=== PATIENT | female | born 1945 | race Caucasian/White ===

== ENCOUNTER 2017-07-15 05:17 | Inpatient (IN) ==
--- NOTE | 2017-07-11 15:54 | Orthopedic History & Physical ---
Orthopedic HPI - HPI Comments Nichelle is a 72 yo female who reports left knee pain for many months. Her pain is moderate, aching and intermittent. Symptoms are worsening gradually and the knee is becoming more valgus in position. No injury or previous surgery. Associated symptoms include : swelling and night pain. Aggravating factors: wt bearing, stairs, walking. Treatments tried : Exercises and rest. Xrays show advanced OA with bone on bone appearance of the lateral joint compartment. PFS Patient Stated Medical History Sleep Apnea No Anesthesia Reactions no known blood relation problems with anesthesia Post Menopausal Yes Clinic Medical History (Last Reviewed 06/05/17 @ 08:54 by El Stearns MD) No pertinent past medical history (Acute Medical) Surgical History: none Family History: Family History (Last Reviewed 06/05/17 @ 08:54 by El Stearns MD) Mother Colon polyps HTN (hypertension) Father Stroke CHF (congestive heart failure) Brother Diabetes - Social History Smoking status: Never smoker Review of Systems All systems: reviewed and no additional remarkable complaints except as stated ( Unchanged from Dr Stearns's dictation.) Medications Home Medications Medication Instructions Recorded Confirmed Type coenzyme Q10 30 mg capsule 30 mg PO DAILY cap 04/23/17 07/11/17 History [id number]-[id number] oil-D3 667 1 cap PO BID cap 04/23/17 07/11/17 History mg (280 mg-280 mg-107 mg) capsule wheat germ oil 14 minim capsule 1 cap PO BID cap 04/23/17 07/11/17 History Allergies Allergy/AdvReac Type Severity Reaction Status Date / Time No Known Allergies Allergy Verified 04/23/17 11:07 Orthopedic Exam - Constitutional General Appearance: Present: alert, orientated x3, cooperative, no acute distress - Respiratory Exam Present: non-labored - Cardiovascular Exam Present: pedal pulses intact - Extremities Exam Present: pulses intact. Absent: cyanosis, clubbing, calf tenderness - Knee Exam left Knee Exam: Present: tender along joint line (Lateral joint line.), Valgus deformity (15 degree valgus deformity.), ROM (5-110 degrees ROM. ), stable to ligament exam - Integumentary Exam Present: pink, warm, dry - Neurological Exam Present: intact to light touch, no deficits - Psychiatric Exam Present: alert, normal affect Orthopedic Assessment and Plan (1) Primary osteoarthritis of left knee Status: Acute Assessment and Plan: The patient has exhausted most conservative forms of treatment and continues to have pain that is debilitating in nature. I do not feel that additional conservative or non-surgical methods are likely to reduce pain or improve function. Due to the lack of response to conservative treatment this patient is being admitted for an elective Total Joint Replacement. We have reviewed operative, non-operative, and alternative forms of treatment. The risk of infection, nerve and vascular injury, fracture, implant loosening and failure have all been explained to the patient. The possibility of persistent pain, stiffness, weakness, and other mechanical problems after surgery have been discussed with this patient. Occasionally, the joint may feel un-natural or unstable and may require removal or additional surgery. The patient has expressed their understandings of these risk and has agreed to proceed with elective joint replacement. The patients length of stay is NOT expected to exceed 2 midnights and outpatient admission is expected. Hospital Course Summary Disclaimer: The visit summary below is not to be considered part of the above Progress Note.
[2017-07-15 05:37] VITALS: BMI 31.2
[2017-07-15] MEDS ORDERED: ACETAMINOPHEN 500 MG TABLET PO ONE (06:00)
[2017-07-15] MEDS ORDERED: MELOXICAM 15 MG TABLET PO ONE (06:00)
[2017-07-15] MEDS ORDERED: LIDOCAINE 1% (10mg/ml) 2mL INJ PF SDV ID ONE (06:00)
[2017-07-15] MEDS ORDERED: METOCLOPRAMIDE 10mg/2ml INJECTION IVP ONE (06:00)
[2017-07-15] MEDS ORDERED: FAMOTIDINE PB 20 MG/50 ML BAG IV ONE (06:00)
[2017-07-15] MEDS ORDERED: TRANEXAMIC ACID 1,000 MG in NS 100 ML IV ONE ×2 (06:00→07:00)
[2017-07-15] MEDS ORDERED: ONDANSETRON 4 MG/2 ML INJECTION IVP ONE (06:00)
[2017-07-15] MEDS ORDERED: DEXAMETHASONE 4 MG/ML INJECTION IVP ONE (06:00)
[2017-07-15] MEDS: LR 1,000 ML IV SCH ×3 (06:08→08:10)
[2017-07-15] MEDS: NOZIN NASAL SWAB NAS SCH ×6 (06:17→22:04)
[2017-07-15] MEDS ORDERED: VANCOMYCIN 1,000 MG INJECTION ONE (06:28)
--- NOTE | 2017-07-15 06:46 | Anesthesia Preoperative Report ---
Anesthesia Preoperative Record - Date and Time Date: 07/15/17 Preoperative Diagnosis: Lt TKA M17.12 primary arthritis Proposed Procedure: left knee arthroplasty NPO Since Date: 07/14/17 NPO Since Time: 23:00 Allergies/Adverse Reactions: Allergies Allergy/AdvReac Type Severity Reaction Status Date / Time No Known Allergies Allergy Verified 07/15/17 05:54 - Vital Signs Vital Signs: Temperature 97.9 F 07/15/17 05:36 Pulse Rate 54 L 07/15/17 06:03 Respiratory Rate 13 07/15/17 05:36 Blood Pressure 136/75 07/15/17 05:36 Pulse Oximetry 94 07/15/17 05:36 Height and Weight: Height 1.7 m Weight 90.5 kg Body Mass Index 31.2 - Medications Inpatient Medications: Current Medications Cefazolin Sodium (Kefzol) 2 g IVP PREOP ONE Stop: 07/15/17 07:01 Epinephrine HCl 0.25 mg/Bupivacaine HCl 30 ml/Morphine Sulfate 15 mg/Ketorolac Tromethamine 60 mg/Sodium Chloride 65.25 mls @ 0 mls/hr OPSITE INTRAOP ONE; Per Protocol PRN Reason: Protocol Stop: 07/15/17 08:01 Tranexamic Acid 1,000 mg/ (Sodium Chloride) 110 mls @ 660 mls/hr IV INTRAOP ONE Stop: 07/15/17 07:09 Lactated Ringer's (Lactated Ringers) 1,000 mls @ 50 mls/hr IV .Q20H [facility] Last Admin: 07/15/17 06:08 Dose: 50 mls/hr Isopropyl Alcohol (Nozin Nasal Swab) 1 each LISA Q1M [facility] Stop: 07/15/17 15:33 Last Admin: 07/15/17 06:20 Dose: 1 each Sodium Chloride (Iv Flush) 10 - 80 ml IV PRN PRN PRN Reason: [place] Home Medications: Home Medications Medication Instructions Recorded Confirmed Type coenzyme Q10 30 mg capsule 30 mg PO DAILY cap 04/23/17 07/15/17 History [id number]-epa-fish oil-D3 667 1 cap PO BID cap 04/23/17 07/15/17 History mg (280 mg-280 mg-107 mg) capsule wheat germ oil 14 minim capsule 1 cap PO BID cap 04/23/17 07/15/17 History - Medical History Respiratory: DENIES: Sleep Apnea Neuro/Musculoskeletal: Reports: HX.MS.OSAR (KNEES, HANDS) Other History: Comment Only: Anesthesia Reactions (no known blood relation problems with anesthesia) - Surgical History GI Surgery/Treatments: Reports: Colonoscopy Anesthesia Reactions: None Hx Family Anesthesia Reaction: No - Social History Smoking Status: Never smoker Substance Use Type: does not use Alcohol Intake: current Alcohol Intake Frequency: holidays/special occasions only - Pertinent Findings EKG: Sinus Bradycardia - Physical Exam Respiratory Exam: Present: lungs clear, bilateral breath sounds equal Cardiovascular Exam: Present: regular rate and rhythm, no murmur - Airway Assessment Mallampati Score: II TMD: 3 Fingerbreadths Neck Extension: fair Overall Assessment: may be difficult mask vent - ASA ASA Score: 1 - Plan Anesthesia: General Inhalation Gases Regional/Trunk Block: Spinal Peripheral Nerve Block: Saphenous-Left - Discussion Discussion: Discussed risks/options/alternatives of anesthesia and questions answered. Patient consents. Nursing pain assessment noted. Attestation Statement: Prior to the delivery of any anesthetic medication, I examined the patient, developed the plan, obtained the patient's consent and discussed the risk and benefits of the procedure with the patient/guardian. - Additional Information Seen by Anesthesia: Yes
[2017-07-15] MEDS ORDERED: MIDAZOLAM 2mg/2ml INJECTION ONE (06:55)
[2017-07-15] MEDS ORDERED: KETAMINE 500 MG/10 ML INJECTION ONE (06:55)
[2017-07-15] MEDS ORDERED: FentaNYL 100 MCG/2 ML INJECTION ONE (06:55)
[2017-07-15] MEDS ORDERED: PROPOFOL 20 ML ONE (06:57)
[2017-07-15] MEDS ORDERED: CEFAZOLIN 1 G INJECTION IVP ONE (07:00)
[2017-07-15] MEDS ORDERED: VANCOMYCIN 1,000 MG INJECTION IAR ONE (07:40)
[2017-07-15] MEDS ORDERED: EPINEPHrine PF 0.25 MG, BUPIVACAINE 0.25% PF 30 ML, MORPHINE SULFATE 15 MG, KETOROLAC I... OPSITE ONE (08:00)
[2017-07-15] MEDS ORDERED: FentaNYL 100 MCG/2 ML INJECTION IVP PRN (08:07)
[2017-07-15] MEDS ORDERED: ROPIVACAINE 0.5% (5mg/ml) 30ml INJ ONE (08:12)
--- NOTE | 2017-07-15 08:30 | Operative Note ---
- Procedure Preoperative Diagnosis: Left knee primary degenerative joint disease Postoperative Diagnosis: Same as preoperative diagnosis. Surgeon: Tala Stearns MD Hydropress Operator: Cameron Valdez Complications: None. Anesthesia: Spinal. Estimated Blood Loss: See Anesthesia Record. Fluids: Please see Anesthesia Record. Description of Procedure: Mrs. Addison and her left knee were identified and marked in the preoperative holding area. She was brought back to the operating suite. Spinal anesthetic was administered and she was placed supine on the operating table. The left lower extremity was prepped and draped in my normal sterile fashion. Timeout was performed. The [employer] robotic arm was used during the surgery. She had a partially correctable valgus deformity with a proximally a 10 flexion contracture. A standard anterior midline incision followed by medial parapatellar arthrotomy was performed. Anterior fat pad and meniscus were removed. The patella was everted and a patella osteotomy was performed leaving 13 mm of bone. Tibial and femoral arrays and checkpoints were placed both within the original incision. The bone was then registered with the [employer] robot. Osteophytes were removed and gaps were captured both 90 and 0 degrees with correction. The [employer] robotic software was used to manipulate components to obtain 18 mm gaps throughout. The [employer] robotic arm was then used to assist with the bone cuts. Posterior osteophytes and remaining meniscus were removed. Trial components were placed. We used a 4 femur and a 4 tibia with a 9 mm spacer and a 32 mm patella. She was well balanced throughout range of motion. She had slight tilt of the patella which was corrected using a towel clip to reapproximate the capsulotomy. The leg was exsanguinated and the tourniquet inflated to 250 mmHg. The tibia was stamped. The bone was prepared for cementing and components were cemented into place and allowed to cure in extension. The tourniquet was let down and hemostasis obtained with electrocautery. The knee was ranged one more time to ensure good stability, balance and patellar tracking. 1 g of vancomycin powder was then placed into the knee joint. The capsulotomy was then closed with #1 Vicryl. I then left my [employer] assistant principal to close the subcutaneous tissue with 2-0 Vicryl. Running 4-0 Monocryl will be used in the subcuticular layer. Dermabond will be used on the skin followed by sterile dressing. After drapes are removed patient will be taken to recovery room under the care of anesthesia.
[2017-07-15] MEDS ORDERED: SEVOFLURANE 250ml LIQUID IH ONE (08:42)
--- NOTE | 2017-07-15 09:29 | Anesthesia Postoperative Note ---
- Date and Time Date: 07/15/17 Time: 09:04 - Status Patient Participated in Evaluation: Patient Participated in Person Vital Signs: Temperature 97.3 F 07/15/17 09:12 Pulse Rate 56 L 07/15/17 09:25 Respiratory Rate 12 07/15/17 09:25 Blood Pressure 105/61 07/15/17 09:25 Pulse Oximetry 94 07/15/17 09:25 Respiratory Function: Airway Patent Cardiovascular Function: Regular Pulse EKG: Sinus Rhythm Mental Status: Alert and Oriented Pain Intensity: 0 Hydration: IV Infusing Complications During Recover: None Apparent - Follow-Up Instructions Instructions: Per Surgeon
--- NOTE | 2017-07-15 09:32 | Anesthesia Procedure Note ---
Peripheral Nerve Blockade - Procedure Physician: El Stearns MD Date: 07/15/17 Surgical Procedure: left knee arthroplasty Discussion: Discussed risks/options/alternatives of anesthesia and questions answered. Patient consents. Nursing pain assessment noted. Block Start: 09:00 Block Stop: 09:02 Indication: Post-Operative Pain Approach: Left Side Confirmed Position: Supine Patient: Consent, Risks/Benefits Discussed, Informed, Post Block Act. Discussed IV Sedation: No Initial Vital Signs: Temperature 97.9 F 07/15/17 05:36 Temperature Source Oral 07/15/17 05:36 Pulse Rate 61 07/15/17 05:36 Respiratory Rate 13 07/15/17 05:36 Blood Pressure 136/75 07/15/17 05:36 Blood Pressure Mean 95 07/15/17 05:36 Pulse Oximetry 94 07/15/17 05:36 Oxygen Delivery Method 07/15/17 05:36 Post Vital Signs: Temperature 97.3 F 07/15/17 09:12 Pulse Rate 56 L 07/15/17 09:25 Respiratory Rate 12 07/15/17 09:25 Blood Pressure 105/61 07/15/17 09:25 Pulse Oximetry 94 07/15/17 09:25 Initial Pain Pain Score: 0 Post Block Pain Score: 0 Prep: Chlorhexadine/ETOH Ultrasound Used?: Yes - Nerve Simulator Paresthesia/Pain: None - Injectate Ropivacaine (%): 0.5 Ropivacaine (mL): 12 Injection: Injection made incrementally with constant monitoring and aspiration every ml
[2017-07-15] MEDS ORDERED: NOZIN NASAL SWAB NAS ONE (09:50)
[2017-07-15] MEDS ORDERED: LORazepam 1 MG TABLET PO PRN (09:50)
[2017-07-15] MEDS ORDERED: DiphenhydrAMINE 25 MG CAPSULE PO PRN (09:50)
[2017-07-15] MEDS ORDERED: TRAMADOL 50 MG TABLET PO PRN (09:50)
[2017-07-15] MEDS ORDERED: NAPROXEN 220 MG TABLET PO PRN (09:50)
[2017-07-15] MEDS ORDERED: DiphenhydrAMINE 50 MG/ML INJECTION IVP PRN (09:50)
[2017-07-15] MEDS ORDERED: ONDANSETRON 4 MG/2 ML INJECTION IVP PRN (09:50)
--- NOTE | 2017-07-15 10:20 | XRay Report ---
Indication: postoperative image PROCEDURE: XR knee LT 2V: Encounter: Initial Comparison: 04/23/2017 Findings: Patient has had interval left total knee arthroplasty. The alignment appears anatomic without lucency around the prosthesis or angulation. No radiopaque foreign body. Impression: Anatomic alignment status post left total knee arthroplasty. .
[2017-07-15] MEDS: ACETAMINOPHEN 325 MG TABLET PO SCH ×4 (10:25→20:23)
[2017-07-15] MEDS: DOCUSATE SODIUM 100 MG CAPSULE PO SCH ×2 (10:26→20:23)
[2017-07-15] MEDS: POLYETHYL GLYCOL 3350 17gm PACKET PO SCH (10:27)
[2017-07-15] MEDS: NS 1,000 ML IV SCH ×2 (10:27→22:05)
[2017-07-15] MEDS ORDERED: SALINE FLUSH 10ml SYRINGE IV PRN (15:28)
[2017-07-15] MEDS: CEFAZOLIN 2 G in NS 100 ML IV SCH ×2 (17:54→22:05)
[2017-07-15] MEDS: DEXAMETHASONE 20 MG/5 ML INJECTION IVP SCH ×2 (17:55→22:05)
[2017-07-15] MEDS: ASPIRIN *EC* 81 MG TABLET PO SCH (20:26)
[2017-07-15] MEDS ORDERED: SENNOSIDES 8.6 MG TABLET PO SCH (21:00)
[2017-07-16] MEDS: NOZIN NASAL SWAB NAS SCH (06:16)
[2017-07-16] MEDS ORDERED: SENNOSIDES 8.6 MG TABLET PO PRN (07:08)
--- NOTE | 2017-07-16 08:21 | Orthopedic Progress Note ---
Date: Date: 07/16/17 Time: 817 Subjective/Severity of Illness: Doing well. No specific complaints or concerns this AM. She has been mobile with good tolerance. Dressing dry. Labs look good. Expects discharge today. Orthopedic Objective PO Vital signs: Temperature 97.5 F 07/16/17 07:35 Pulse Rate 56 L 07/16/17 07:35 Respiratory Rate 18 07/16/17 07:35 Blood Pressure 131/78 07/16/17 07:35 Pulse Oximetry 98 07/16/17 07:35 Height and Weight: Height 5 ft 7 in Weight 199 lb 8.293 oz Body Mass Index 31.2 - Constitutional General Appearance: Present: alert, cooperative, no acute distress - Respiratory Exam Present: non-labored - Cardiovascular Exam Present: pedal pulses intact - Extremities Exam Extremities: Absent: calf tenderness - Surgical Site Incision: Mepilex dressing intact, no drainage - Integumentary Exam Present: pink, warm, dry - Neurological Exam Present: intact to light touch, no deficits - Psychiatric Exam Present: alert, normal affect - Labs Result Diagrams: 07/16/17 04:23 07/16/17 04:23 Abnormal lab results 07/16/17 Range/Units 04:23 Creatinine 0.6 L (0.7-1.2) MG/DL BUN/Creatinine Ratio 28 H (6-26) RATIO Glucose 149 H (65-110) MG/DL H & H 07/16/17 Range/Units 04:23 Hgb 13.0 (12-16) GM/DL Hct 38.7 (36-46) % Orthopedic Assessment and Plan (1) Primary osteoarthritis of left knee Status: Acute Assessment and Plan: Aspirin protocol for VTE prophylaxis. SCD's and early mobilization for added DVT protection. PT/OT services to improve independent function. Expect discharge later today if tolerating activity and pain controlled. Plan f/u in 3 weeks. Out pt therapy has been set up. Discharge Planning per Case Management. - Anticoagulation Therapy Anticoagulation: ASA 81 mg PO BID x6 weeks Hospital Course Summary Disclaimer: The visit summary below is not to be considered part of the above Progress Note.
[2017-07-16] MEDS: ACETAMINOPHEN 325 MG TABLET PO SCH (08:54)
[2017-07-16] MEDS: DOCUSATE SODIUM 100 MG CAPSULE PO SCH (08:55)
[2017-07-16] MEDS: ASPIRIN *EC* 81 MG TABLET PO SCH (08:55)
[2017-07-16] MEDS: POLYETHYL GLYCOL 3350 17gm PACKET PO SCH (08:55)
--- NOTE | 2017-07-16 09:01 | Discharge Summary ---
<Kaleb Kirkpatrick - Last Filed: 07/16/17 13:02> Orthopedic Discharge Info Date of admission: 07/15/17 05:18 Primary care physician: Mili Elliott DO Attending Physician: El Stearns MD Consults: 07/15/17 05:26 Consult to Anesthesiology [CONS] Routine Reason For Exam: Preoperative Assessment 07/15/17 09:50 Case Management Consult [CONS] Routine Reason For Exam: Discharge Planning DME-Walker [CONS] Routine Height: 5 ft 7 in Weight: 199 lb 8.293 oz Total Joint Outpatient Therapy [CONS] Routine Comment: Remove dressing in 2 weeks - Discharge Diagnosis (1) Primary osteoarthritis of left knee Status: Acute - Laboratory Result Diagrams: 07/16/17 04:23 07/16/17 04:23 Laboratory: Abnormal lab results 07/16/17 Range/Units 04:23 Creatinine 0.6 L (0.7-1.2) MG/DL BUN/Creatinine Ratio 28 H (6-26) RATIO Glucose 149 H (65-110) MG/DL H & H 07/16/17 Range/Units 04:23 Hgb 13.0 (12-16) GM/DL Hct 38.7 (36-46) % Discharge Plan - Med Rec/Dispo Referrals/Follow Up: El Stearns MD [Physician] - 08/06/17 1:15 pm [facility] Instructions: [facility] Postop Instructions Prescriptions: New Aspirin *EC* [Ecotrin] 81 mg PO BID tab Docusate Sodium [Colace] 100 mg PO BID cap Milk of Magnesia [Mom] 30 ml PO DAILY udc PEG 3350 17gm PACKET [Miralax] 17 gm PO DAILY packet Tramadol [Ultram] 50 - 100 mg PO Q6H PRN #60 tab PRN Reason: Pain Acetaminophen [Tylenol] 650 mg PO QID tab Naproxen [Aleve] 440 mg PO BID PRN tab PRN Reason: Pain Continue coenzyme Q10 30 mg capsule 30 mg PO DAILY cap ergocalciferol (vitamin D2) 50,000 unit capsule 50,000 unit PO DAILY #2 cap No Action wheat germ oil 14 minim capsule 1 cap PO BID cap ixrdu-[id number]-[id number]-epa-fish oil-D3 667 mg (280 mg-280 mg-107 mg) capsule 1 cap PO BID cap - Disposition 01 Discharged Home, Self-Care - Dismissal Complete Discharge Instructions are:: Complete <Cameron Valdez - Last Filed: 07/16/17 13:18> Orthopedic Discharge Info Date of admission: 07/15/17 05:18 Primary care physician: Mili Elliott DO Attending Physician: El Stearns MD Consults: 07/15/17 05:26 Consult to Anesthesiology [CONS] Routine Reason For Exam: Preoperative Assessment 07/15/17 09:50 Case Management Consult [CONS] Routine Reason For Exam: Discharge Planning DME-Walker [CONS] Routine Height: 5 ft 7 in Weight: 199 lb 8.293 oz Total Joint Outpatient Therapy [CONS] Routine Comment: Remove dressing in 2 weeks - Discharge Diagnosis (1) Primary osteoarthritis of left knee Status: Acute - Procedures Procedures: Left TKA 07/15/17. - Laboratory Result Diagrams: 07/16/17 04:23 07/16/17 04:23 Laboratory: Abnormal lab results 07/16/17 Range/Units 04:23 Creatinine 0.6 L (0.7-1.2) MG/DL BUN/Creatinine Ratio 28 H (6-26) RATIO Glucose 149 H (65-110) MG/DL H & H 07/16/17 Range/Units 04:23 Hgb 13.0 (12-16) GM/DL Hct 38.7 (36-46) % Orthopedic Discharge HPI - HPI Comments Nichelle is a 72 yo female who reports left knee pain for many months. Her pain is moderate, aching and intermittent. Symptoms are worsening gradually and the knee is becoming more valgus in position. No injury or previous surgery. Associated symptoms include : swelling and night pain. Aggravating factors: wt bearing, stairs, walking. Treatments tried : Exercises and rest. Xrays show advanced OA with bone on bone appearance of the lateral joint compartment. She is admitted for elective TKA. Orthopedic Hospital Course Hospital course: After appropriate preoperative clearance and signing of operative consent, the patient was given IV antibiotics, according to orthopedic protocol. The patient was taken to the operating room and underwent elective left total knee arthroplasty. Following surgery, antibiotics were discontinued less than 24 hours according to joint protocol. Appropriate anticoagulants were initiated and SCDs added for DVT prevention. The dressing was clean, dry, and intact. Pain control was obtained via multimodal approach. Bowel motivation addressed with scheduled and PRN medications. Early mobilization was initiated through PT services. Discharge arrangements made by a collaborative effort between the patient and Case Management. Follow-up is scheduled in 2-3 weeks. Discharge instructions given by orthopedic providers and nursing staff at discharge. Discharge condition was good. Care extended to > 2 midnight stays?: No Discharge Plan - Med Rec/Dispo - Dismissal Complete Discharge Instructions are:: Complete, Incomplete
[2017-07-16 12:19] VITALS: BP 127/76; PULSE 62; RESP 16; TEMP 96.7; O2SAT 97
[2017-07-17] MEDS ORDERED: BISACODYL 10 MG SUPPOSITORY RECTALLY SCH (20:00)
== END 2017-07-16 14:59 | disposition home or self-care (01) | DRG 470 ==
LOC: SUR 05:17 → NMC.PERIOP 05:18 → SRG 05:18 → SUR 09:51 → SRG 09:52
PROVIDERS: ADMIT Orthopaedic Surgery; ATTEND Orthopaedic Surgery